=== PATIENT | female | born 1940 | race Caucasian/White ===

== ENCOUNTER → 2016-10-11 | Outpatient (CLI) | payer MEDICARE, BC ==
[~2016-10-11] MED LIST: NORCO 325 MG-51 TAB PO
== END ==
LOC: MC.RAD 09:00
DX: N63 Unspecified lump in breast (principal)

== ENCOUNTER → 2019-07-24 | Outpatient (CLI) | payer MEDICARE | LOC: COL.RAD 12:50 | DX: I67.82 Cerebral ischemia (principal) | CPT/HCPCS: A9585 ==

== ENCOUNTER → 2024-06-18 | Outpatient (CLI) | payer MEDICARE | LOC: COL.RAD 07:53 | DX: M41.86 Other forms of scoliosis, lumbar region (principal) ==